=== PATIENT | male | born 1940 | race Caucasian/White ===

== ENCOUNTER → 2018-08-27 13:42 | Outpatient (CLI) | payer MEDICARE, OTHER, SELFPAY ==
--- NOTE | 2018-08-27 | DI.MRI.S_ITS ---
PROCEDURE: MR CERVICAL SPINE WO CON INDICATIONS: CERVICAL SPINE PAIN TECHNIQUE: Noncontrast sagittal T1 spin echo and T2 fast spin echo, sagittal STIR, foraminal oblique sagittal T2 fast spin echo, and axial gradient echo or T2 fast spin echo through the cervical spine. COMPARISON: None. FINDINGS: Image quality: Excellent. Alignment and Curvature: There is normal bony alignment. Bone Marrow: Marrow demonstrates normal overall signal. Spinal Cord: Visualized spinal cord has normal size and signal. No cerebellar tonsillar herniation. Paraspinous Soft Tissues: No paravertebral masses. Prevertebral soft tissues are normal in thickness. C2-C3: Normal appearance. C3-C4: Moderate degenerative disc disease, with a posterior midline disc bulge/protrusion which effaces CSF from the anterior thecal sac at the midline, and also displaces the cord slightly posteriorly effacing CSF from the posterior aspect of the thecal sac at this level. Facet osteoarthritis and uncovertebral degenerative change is mild at this level with mild foraminal stenosis and potential for symmetric impingement on the course of the C4 nerve roots. The mild to moderate spinal stenosis present at this level is symmetric and without myelomalacia. C4-C5: Normal appearance. C5-C6: Normal appearance except for mild disc height reduction without spinal or foraminal stenosis. C6-C7: Normal appearance. C7-T1: Normal appearance. IMPRESSION: The degenerative changes along the cervical spine are relatively mild and best seen at C3-C4 where posterior disc bulge/protrusion at the midline results in mild to moderate spinal stenosis with effacement of CSF at the anterior midline of the cervical cord and along the posterior aspect of the cervical cord. A focal asymmetric impingement on the C4 nerve roots within the spinal canal or along the neural foramen is not found. Clinical symptomatology for this patient is centered on the right and targeted to the C5 right-sided nerve root. No disc bulge or herniation is found within the spinal canal or along the lateral aspect of the spinal column to explain this symptomatology. The findings were reviewed and discussed in detail with the patient personally. Dictated by: Michael Puga M.D. on 08/27/2018 at 15:48 Approved by: Michael Puga M.D. on 08/27/2018 at 15:57
== END ==
PROVIDERS: PCP Internal Medicine; Visit Provider Physical Medicine & Rehabilitation Pain Medicine
DX: M50.31 Other cervical disc degeneration, high cervical region (principal); M47.812 Spondylosis without myelopathy or radiculopathy, cervical region; M48.02 Spinal stenosis, cervical region
CPT/HCPCS: 72141

== ENCOUNTER → 2018-11-20 14:52 | Outpatient (CLI) | payer MEDICARE, OTHER, SELFPAY ==
--- NOTE | 2018-11-20 | DI.RAD.S_ITS ---
PROCEDURE: XR CHEST 2V INDICATIONS: COUGH, INFLUENZA A TECHNIQUE: 2 views of the chest were acquired. COMPARISON: None. FINDINGS: Surgical changes and devices: None. Lungs and pleura: Mild hyperinflation suggesting COPD. Lungs are clear. No pleural effusions or pneumothorax. Mediastinum: Mediastinal contours are normal. Heart size is normal. Bones and chest wall: No suspicious bony abnormalities. Soft tissues appear unremarkable. IMPRESSION: 1. No acute cardiopulmonary disease. 2. Suspect COPD. Dictated by: Camilo Bearden M.D. on 11/20/2018 at 15:22 Approved by: Camilo Bearden M.D. on 11/20/2018 at 15:34
== END ==
PROVIDERS: PCP Internal Medicine; Visit Provider Student in an Organized Health Care Education/Training Program
DX: R05 Cough (principal); J10.1 Influenza due to other identified influenza virus with other respiratory manifestations
CPT/HCPCS: 71046

== ENCOUNTER → 2019-01-29 10:32 | Outpatient (CLI) | payer MEDICARE, OTHER, SELFPAY ==
--- NOTE | 2019-01-29 14:53 | PM.TREADMILL ---
Cardiac Stress Test Report Referral & Results Date Patient Seen: 01/29/19 Requesting provider: Liana Antoine Indication: Coronary artery disease Rest ECG: Unremarkable Procedure Note: After both written and verbal informed consent patient had an IV started by the diagnostic imaging nurse and was hooked up to the treadmill monitoring system Patient was exercised according to standard Koby protocol for 6 minutes which point it was clear his heart rate was still less than 100 and he was not going to achieve heart rate target of 122. Patient normally takes very low-dose metoprolol which he had continued at the direction of Cardiology. Therefore at that point the treadmill was returned to a 1 mi an hour 0% elevation settings and the test was converted to a Lexiscan Cardiolite. He was administered Lexiscan material immediately followed by the Cardiolite tracer. Patient continue on the treadmill at 1 mi an hour with no elevation for an additional 3 minutes During the exercise portion of the test as above there were no ST-T segment changes. Blunted heart rate response blood pressure was going up. Patient did have frequent PACs including brief runs of either SVT or atrial tachycardia and at times converted this into more extended runs of left bundle branch block conduction pattern (3-5 seconds) with a supraventricular source with a heart rate of about 140. The spontaneously converted back to a more normal ventricular conduction pattern. Patient was completely asymptomatic. In addition patient had occasional PACs and PVCs. Impression: No evidence of ischemia based on usual ECG criteria to the limits the patient was able exercise approximately the end of Koby stage 2. Blunted heart rate response as above which resulted in conversion to Lexiscan study. Normal blood pressure response. Conduction abnormality as above. Please see perfusion imaging report as well. Please note: Actual ECG tracings can be found in the PACS system.
--- NOTE | 2019-01-29 18:15 | DI.NM.S_ITS ---
DATE OF SERVICE: 01/29/2019 PROCEDURE PERFORMED: Exercise treadmill stress and rest myocardial perfusion imaging with gating to assess ejection fraction and regional wall motion iusing a 1- day protocol. REFERRING PROVIDER: Liana Antoine MD INDICATIONS: The patient is a 78-year-old male status post LAD PCI with known residual disease. CARDIAC STRESS: The patient was initially stressed by treadmill and was able to walk for 6 minutes on a standard Koby protocol suggesting at least average exercise capacity without angina or ST-segment abnormalities but was unable to achieve a heart rate greater than 100 bpm, and therefore was converted to a pharmacologic study with injection of 0.4 mg of regadenoson. His resting ECG showed sinus rhythm at [address] segments. With exercise, he has occasional PVCs, and at 3 minutes 51 seconds of exercise, he develops a wide- complex tachycardia at 136 bpm, which most likely reflects an atrial tachycardia with a left bundle-branch configuration that spontaneously converted back to a sinus rhythm at around 96 bpm. He was asymptomatic. He had occasional PVCs but no other arrhythmias or any ST-segment shifts. Per protocol 0.4 mg of regadenoson was infused per protocol without any additional arrhythmias or ST-segment shifts. He was injected with 25.9 mCi of technetium-99 Myoview and imaged 15 minutes post injection. He had previously been injected with 11.7 mCi of technetium-99 Myoview for the resting images which were obtained 40 minutes after injection. FINDINGS: 1. Raw Data: There is fairly good myocardial tracer uptake. The lung/heart ratio is normal at 0.36. TID ratio is normal at 0.90. 2. Quantitative Gated SPECT: Post stress ejection fraction is estimated to be 74% without any focal wall motion abnormality and specifically, the anterior wall has normal contractility. Resting ejection fraction is 67% with a normal end-diastolic volume of 122 mL. 3. Myocardial Perfusion Imaging: Post stress supine images show a relatively normal myocardial perfusion pattern without any perfusion defects, supported by normal perfusion imaging in the prone position. The resting images show an identical perfusion pattern. CONCLUSION: 1. Normal myocardial perfusion study for ischemia using a combination of exercise and pharmacologic stress. 2. No evidence for myocardial ischemia or previous myocardial infarction. 3. Normal left ventricular function without any regional wall motion abnormality. 4. At least average exercise capacity with a blunted chronotropic response but the development of a self-limited wide-complex tachycardia, likely reflecting an SVT with a LBBB that spontaneously resolved. He had occasional PVCs but no other arrhythmias. 5. Compared to his previous perfusion imaging study of 11/08/2017, there has been no significant change. He had no perfusion defects at that time as well. Tony Orozco - GIORGIO/emani/ doc#: [id number]/job#: [id number] dd: 01/29/2019 16:37:00 dt: 01/29/2019 17:57:00 DICTATING MD/COPIES TO: Helio Hurtado MD; Liana Antoine MD; Davi Ware MD COPIES MNE: BIBIANA NEWMAN; CHRISTINE
== END ==
PROVIDERS: PCP Internal Medicine; Visit Provider Internal Medicine Cardiovascular Disease
DX: I25.10 Atherosclerotic heart disease of native coronary artery without angina pectoris (principal); I45.9 Conduction disorder, unspecified; Z95.5 Presence of coronary angioplasty implant and graft
CPT/HCPCS: 78452; 93016; 93017; 93018; A9502; J2785

== ENCOUNTER → 2019-04-20 11:25 | Outpatient (CLI) | payer MEDICARE, OTHER, SELFPAY ==
--- NOTE | 2019-04-20 | DI.MRI.S_ITS ---
PROCEDURE: MR PELIS WO/W CON INDICATIONS: PROSTATE CANCER. History of prostatectomy 7 years prior with history of gradually increasing PSA. TECHNIQUE: Coronal HASTE, axial T1 FSE with fat saturation, 3-plane nonbreath-hold T2 FSE. After the administration of contrast, dynamic axial, delayed axial and coronal VIBE or 2-D FLASH with fat saturation through the pelvis. Optional diffusion weighted imaging and ADC may be performed. COMPARISON: [facility], MR, HIP RT W/O CONTRAST, 10/26/2011, 9:02. FINDINGS: Image quality: There is magnetic susceptibility artifact from patient's bilateral hip prostheses. Prostate: There are postsurgical changes compatible with prior transurethral prostatic resection. No discrete suspicious enhancing mass identified within the surgical bed. Genitourinary system: Bladder wall thickness is normal. Distal ureters are non distended. Bowel and peritoneum: No pathologic free pelvic fluid. Inferior colon and small bowel loops are normal in caliber. Nodes and vessels: No pelvic or inguinal adenopathy by size criteria. Iliac vessels are normal in caliber. Soft tissues: No inguinal hernias. Bones: Marrow demonstrates normal overall signal, without definite suspicious lesions to suggest metastases. Evaluation is limited by magnetic susceptibly artifact from patient's bilateral hip prostheses. IMPRESSION: 1. Postsurgical changes compatible with prior prostatectomy demonstrated. No definite evidence of recurrent disease in the surgical bed. 2. No definite evidence of metastatic disease in the pelvis with evaluation limited by magnetic susceptibly artifact from bilateral hip prostheses. Dictated by: Wallace Lezama M.D. on 04/20/2019 at 17:49 Approved by: Wallace Lezama M.D. on 04/20/2019 at 17:55
== END ==
PROVIDERS: PCP Internal Medicine; Visit Provider Internal Medicine
DX: Z90.79 Acquired absence of other genital organ(s) (principal)
CPT/HCPCS: 72197; A9579

== ENCOUNTER → 2019-10-06 10:02 | Outpatient (CLI) | payer MEDICARE, OTHER, SELFPAY ==
--- NOTE | 2019-10-06 | DI.CT.S_ITS ---
PROCEDURE: CT SINUS SCREEN WO CON INDICATIONS: Chronic sinusitis, unspecified TECHNIQUE: Noncontrast 3.0 mm axial images acquired from the frontal sinuses to the mid-sella, with coronal and sagittal reformats. For radiation dose reduction, the following was used: automated exposure control, adjustment of mA and/or kV according to patient size. COMPARISON: None. FINDINGS: Image quality: The inferior most aspect of the right maxillary sinus is not included within the [id number] of this study. Maxillary Sinuses: No bony remodeling or destruction. Mild mucosal thickening is seen within the inferior maxillary sinuses. Ethmoid Air Cells: No bony remodeling or destruction. At least moderate mucosal thickening is seen within the air cells. Sphenoid Sinuses: No bony remodeling or destruction. Mild mucosal thickening is seen within the sphenoid sinuses. Frontal Sinuses: No bony remodeling or destruction. Mild to moderate mucosal thickening is seen within the inferior maxillary sinuses. Ostiomeatal Complexes: Ostiomeatal complexes are patent, yet are constitutionally narrowed. No Shirlene cells. Miscellaneous: Visualized intra-orbital contents are normal. Bilateral evan bullosa are seen, right larger than left. There is mild to moderate leftward nasal septal deviation, with a leftward directed bony nasal septal spur. IMPRESSION: Multiple sites of paranasal sinus disease are seen, which are overall most prominent within the ethmoid air cells. Mild to moderate leftward nasal septal deviation. Constitutionally narrowed ostiomeatal complexes. Dictated by: Fortunato Oneal M.D. on 10/06/2019 at 10:10 Approved by: Fortunato Oneal M.D. on 10/06/2019 at 10:15
== END ==
PROVIDERS: PCP Internal Medicine; Referring Provider Internal Medicine; Visit Provider Internal Medicine
DX: J32.8 Other chronic sinusitis (principal); J34.2 Deviated nasal septum; J34.3 Hypertrophy of nasal turbinates
CPT/HCPCS: 70486

== ENCOUNTER → 2020-07-05 15:36 | Oncology outpatient (ONC) | payer MEDICARE, OTHER, SELFPAY ==
[2020-07-05 16:51] VITALS: BP 148/82; PULSE 65; RESP 16; O2SAT 100
--- NOTE | 2020-07-05 17:40 | ONC.CONS ---
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 He originally underwent a radical prostatectomy in October of 2011 at [facility]. He received no additional treatment. In 2017 is PSA became detectable after a 5 year interval. It has slowly risen and his most recent value on May 31, 2020 was 0.18. He is wondering about the value of post prostatectomy radiation therapy and presents today for medical oncology consultation. perspective he feels fine. Does not have any problems with pain, bleeding, localized weakness, fever, chills, nausea, vomiting, cough or shortness of breath. He has no issues with incontinence. He has mild erectile dysfunction but is still able to have intercourse. He has some numbness in his lower extremities due to chronic back problems. All other systems are negative. Past medical history 1. DJD 2. High blood pressure 3. History of angina. He has a history of coronary artery disease and has a right coronary stent. He also has a lesion in the left anterior descending artery that was not stentable. He was seen by Cardiothoracic surgery the [facility] and has had serial exercise treadmill as that have been negative and he has had no recurrence of his angina. 4. He has chronic idiopathic axonal neuropathy 5. He denies diabetes, rheumatic fever, tuberculosis, strokes, or pneumonia 6. Previous surgeries include his prostatectomy, bilateral hip replacements, bilateral L2-L4 lumbar laminectomy, bilateral carpal tunnel releases 7. There is a family history of CLL in his father. His sister had breast cancer at age 65. Family history is otherwise negative. 8. He is allergic to terbinafine 9. Current medications are reviewed and are as noted in the chart. CC: Helio Humphries MD Home Medications and Allergies Home Medications Medication Instructions Recorded Confirmed Type aspirin 81 mg PO DAILY 07/05/20 07/05/20 History losartan 50 mg PO DAILY 07/05/20 07/05/20 History metoprolol tartrate 25 mg PO DAILY 07/05/20 07/05/20 History pregabalin [Lyrica] 50 mg PO BEDTIME 07/05/20 07/05/20 History rosuvastatin 40 mg PO DAILY 07/05/20 07/05/20 History Allergies Allergy/AdvReac Type Severity Reaction Status Date / Time terbinafine Allergy Unknown Verified 07/05/20 16:47 Review of Systems - Patient Self-Reported Symptoms SR Genitourinary issues: Sexual difficulties SR Neuro issues: Numbness or tingling Exam Vital signs: Vital Signs Pulse Resp BP Pulse Ox 07/05/20 16:51 65 16 148/82 H 100 Intake and Output 07/05/20 07/05/20 07/05/20 07:59 15:59 23:59 Other: Weight 76.9 kg Patient Weight 07/05/20 23:59 Weight 76.9 kg Narrative: He was awake, alert and oriented x3. He was in no acute distress. Assessment and Plan (1) Prostate cancer Status: Acute Dr. Orozco has a slowly rising PSA with a doubling time of a little over a year after a greater than 5 year interval following initial radical prostatectomy. He was intermediate risk at presentation. He is quite functional with a fit geriatric status. Using E prognosis, his 10 year mortality is in the 40-50% range. I reviewed his case with Dr. Carlito resendiz with [facility]. I also reviewed his case with Dr. Lorelei Irving at [facility]. Both are medical oncologist. We discussed the fact that his slowly rising PSA is likely indicative of residual and slowly growing prostate cancer. He could be considered for salvage radiation therapy. The best data for this approach is when the PSA is between 0.2 and 0.5. Long-term disease-free survival would be achieved in about one third of patients with a risk of treatment related toxicities including incontinence, worsening erectile dysfunction, cystitis, enteritis and dermatitis. If we had 6 months of androgen deprivation therapy, this would be a more aggressive approach in May improved these outcomes somewhat. We also discussed the recent presentation at the [facility] meeting using fluciclovine PET for stratification and for radiation treatment planning. Four year failure free survival rates were improved from 51-75.5% with this approach. Patient's risk stratified as to whether or not they had a PSA above or below 2 as well as based on their pathology criteria. The PET scan change treatment planning in about 35% of cases. I explained that the patients in this study likely had more disease on board that Dr. Orozco does given the fact that PSA stratification was centered around a level of 2. We discussed the fact that without any treatment he is likely to do well for several years, possibly many years. He has a repeat PSA ordered in August of 2020. I explained that I thought would be reasonable to wait until his level was at least 0.2 so that he was in a range where salvage radiation data appear to be the strongest. We also discussed other measures can take to improve his general health and also improve his cancer outcomes including regular exercise and healthy diet. He is doing both of those interventions. Dr. Orozco will get his follow-up PSAs through his team at [facility] as previously schedule. He has an appointmeny with Dr. Carlito Vealsquez at [facility] later this month. Although no specific return appointment has been scheduled to this office, I would be happy to see him again today time in the future if I could be of assistance in his care. I personally spent 32 minutes in today's [id number] visit with greater than 50% of the time spent in counseling regarding the issues outlined above. Impression: 1. Radical prostatectomy in October of 2011 2. Slowly rising PSA beginning in 2017 after a 5 year disease-free interval 3. Most recent PSA in May of 2020 was 0.18 4. Patient is asymptomatic 5. History of coronary artery disease, status post stent placement 6. Fit geriatric status. Using E prognosis he has a 10 year estimated mortality of 40-50%. Recommendations: 1. Patient was counseled about his good prognosis 2. Case was reviewed with Dr. Velasquez at [facility] and Dr. Irving at [facility] 3. He will get a follow-up PSA is scheduled in August of 2020 4. We discussed the option of radiation therapy when his PSA is in a range of 0.2-0.5 5. We discussed the fact that we could add a 6 month course of androgen deprivation therapy if we want to take a more aggressive approach 6. We also discussed the recent data from the [facility] meeting regarding the value of fluciclovine PET in radiation treatment planning
== END ==
LOC: ONC 15:38
PROVIDERS: PCP Internal Medicine; Referring Provider Internal Medicine; Visit Provider Internal Medicine
DX: Z08 Encounter for follow-up examination after completed treatment for malignant neoplasm (principal); Z85.46 Personal history of malignant neoplasm of prostate; R97.21 Rising PSA following treatment for malignant neoplasm of prostate; I10 Essential (primary) hypertension; I25.10 Atherosclerotic heart disease of native coronary artery without angina pectoris; G60.8 Other hereditary and idiopathic neuropathies; Z95.5 Presence of coronary angioplasty implant and graft
CPT/HCPCS: 99203; 99213

== ENCOUNTER → 2020-09-13 18:28 | Outpatient (ROUT) | payer MEDICARE, OTHER, SELFPAY ==
[2020-09-13 18:58] LABS: Add Manual Diff / Slide Review NO; Basophils Absolute Auto 0 /uL (0-100); Basophils Percent Auto 1.2 % (0-2); Eosinophils Absolute Auto 100 /uL (0-450); Eosinophils Percent Auto 4.2 % (2-4); Hematocrit 42.1 % (41-53); Hemoglobin 13.9 g/dL (13.5-17.5); Lymphocytes Absolute Auto 800 /uL (1100-4500); Lymphocytes Percent Auto 25.3 % (25-40); Mean Corpuscular HGB Conc 33.1 % (30-36); Mean Corpuscular Hemoglobin 29.5 PG (26-34); Mean Corpuscular Volume 89.2 fL (80-100); Monocytes Absolute Auto 300 /uL (0-900); Monocytes Percent Auto 10.5 % (3-14); Neutrophils Absolute Auto 1900 /uL (1500-7000); Neutrophils Percent Auto 58.8 % (50-75); Platelet Count 167 X10^3/uL (150-400); Red Blood Cell Count 4.72 X10^6/uL (4.5-5.9); Red Cell Distribution Width 13.6 % (11.6-14.8); White Blood Cell Count 3.2 X10^3/uL (4.5-11.0)
[2020-09-13 19:17] LABS: Aspartate Aminotransferase 41 IU/L (17-59); BUN Creatinine Ratio 21.2 (6-22); Blood Urea Nitrogen 18 mg/dL (9-20); Calcium 9.2 mg/dL (8.4-10.2); Carbon Dioxide 34 mmol/L (22-32); Chloride 95 mmol/L (98-107); Cholesterol 129 mg/dL (140-199); Estimated Glomerular Filt Rate > 60.0 mL/min (>60); Glucose 102 mg/dL (80-110); HDL Cholesterol 48 mg/dL (40-60); HEMOLYSIS < 15 (0-50); LDL Cholesterol Calculated 64 mg/dL (<100); Potassium 4.6 mmol/L (3.4-5.1); Sodium 133 mmol/L (137-145); Triglycerides 86 mg/dL (35-150)
[2020-09-13 19:18] LABS: Hemoglobin A1C% w Est Avg Glu 5.9 % (4.0-6.0)
[2020-09-13 20:05] LABS: Vitamin B12 535 pg/mL (239-931)
== END ==
PROVIDERS: PCP Internal Medicine; Visit Provider Internal Medicine
DX: I10 Essential (primary) hypertension (principal); E78.2 Mixed hyperlipidemia; E53.8 Deficiency of other specified B group vitamins; R73.01 Impaired fasting glucose
CPT/HCPCS: 80048; 80061; 82607; 83036; 84450; 85025

== ENCOUNTER → 2022-12-28 14:44 | Outpatient (CLI) | payer MEDICARE, OTHER, SELFPAY ==
[2022-12-28 19:03] LABS: Hematocrit 39.2 % (41-53); Hemoglobin 13.5 g/dL (13.5-17.5); Mean Corpuscular HGB Conc 34.5 % (30-36); Mean Corpuscular Hemoglobin 30.3 PG (26-34); Mean Corpuscular Volume 87.9 fL (80-100); Platelet Count 159 X10^3/uL (150-400); Red Blood Cell Count 4.46 X10^6/uL (4.5-5.9); Red Cell Distribution Width 13.5 % (11.6-14.8); White Blood Cell Count 3.8 X10^3/uL (4.5-11.0)
[2022-12-28 19:27] LABS: Alanine Aminotransferase 31 IU/L (<50); Albumin 4.2 g/dL (3.5-5.0); Albumin Globulin Ratio 1.6 (1.0-2.8); Alkaline Phosphatase 46 U/L (38-126); Aspartate Aminotransferase 35 IU/L (17-59); Bilirubin Total 0.5 mg/dL (0.2-1.3); Blood Urea Nitrogen 16 mg/dL (9-20); Calcium 8.7 mg/dL (8.4-10.2); Carbon Dioxide 33 mmol/L (22-32); Chloride 97 mmol/L (98-107); Cholesterol 115 mg/dL (140-199); Estimated Glomerular Filt Rate > 60 mL/min (>60); Globulin 2.6 g/dL (1.7-4.1); Glucose 83 mg/dL (80-110); HDL Cholesterol 48 mg/dL (40-60); HEMOLYSIS < 15 (0-50); LDL Cholesterol Calculated 52 mg/dL (<100); Potassium 5.1 mmol/L (3.4-5.1); Sodium 135 mmol/L (137-145); Total Protein 6.8 g/dL (6.3-8.2); Triglycerides 74 mg/dL (35-150)
[2022-12-28 19:55] LABS: TSH w/ Reflex to FT4 2.18 uIU/mL (0.47-4.68)
== END ==
PROVIDERS: PCP Internal Medicine; Referring Provider Internal Medicine; Visit Provider Internal Medicine
DX: C61 Malignant neoplasm of prostate (principal); E78.2 Mixed hyperlipidemia; I25.10 Atherosclerotic heart disease of native coronary artery without angina pectoris
CPT/HCPCS: 36415; 80053; 80061; 84443; 85027

== ENCOUNTER → 2024-04-20 11:59 | Outpatient (CLI) | payer MEDICARE, OTHER, SELFPAY ==
[2024-04-20 12:55] LABS: Hematocrit 41.5 % (41-53); Mean Corpuscular HGB Conc 33.8 % (30-36); Mean Corpuscular Volume 88.9 fL (80-100); Platelet Count 164 X10^3/uL (150-400); Red Blood Cell Count 4.67 X10^6/uL (4.5-5.9); Red Cell Distribution Width 14.6 % (11.6-14.8); White Blood Cell Count 3.4 X10^3/uL (4.5-11.0)
[2024-04-20 13:24] LABS: Alanine Aminotransferase 45 IU/L (<50); Albumin 4.4 g/dL (3.5-5.0); Albumin Globulin Ratio 1.7 (1.0-2.8); Alkaline Phosphatase 59 U/L (38-126); Aspartate Aminotransferase 49 IU/L (17-59); Bilirubin Total 0.7 mg/dL (0.2-1.3); Blood Urea Nitrogen 13 mg/dL (9-20); Calcium 9.3 mg/dL (8.4-10.2); Carbon Dioxide 31 mmol/L (22-32); Chloride 99 mmol/L (98-107); Cholesterol 119 mg/dL (140-199); Estimated Glomerular Filt Rate > 60 mL/min (>60); Globulin 2.6 g/dL (1.7-4.1); Glucose 104 mg/dL (80-110); HDL Cholesterol 56 mg/dL (40-60); HEMOLYSIS < 15 (0-50); LDL Cholesterol Calculated 51 mg/dL (<100); Potassium 5.1 mmol/L (3.4-5.1); Sodium 136 mmol/L (137-145); Triglycerides 58 mg/dL (35-150)
[2024-04-20 13:26] LABS: HEMOLYSIS < 15 (0-50); Iron 99 ug/dL (49-181)
[2024-04-20 13:37] LABS: Percent Iron Saturation 31 % (20-50); Total Iron Binding Capacity 319 ug/dL (261-462); Transferrin 244 mg/dL (206-381)
[2024-04-20 13:56] LABS: Ferritin 64 ng/mL (18-464)
[2024-04-20 14:14] LABS: Vitamin B12 543 pg/mL (239-931)
== END ==
LOC: LAB 12:00
PROVIDERS: PCP Internal Medicine; Referring Provider Internal Medicine; Visit Provider Internal Medicine
DX: E53.8 Deficiency of other specified B group vitamins (principal); D64.9 Anemia, unspecified; E78.2 Mixed hyperlipidemia; I48.0 Paroxysmal atrial fibrillation
CPT/HCPCS: 80053; 80061; 82607; 82728; 83540; 83550; 85027